=== PATIENT | female | born 1960 | race Caucasian/White ===

== ENCOUNTER → 2021-02-15 | Outpatient (CLI) | payer BC | LOC: KOH-I 13:20 | DX: Z09 Encounter for follow-up examination after completed treatment for conditions other than malignant neoplasm (principal); Z87.891 Personal history of nicotine dependence | CPT/HCPCS: 71271 ==

== ENCOUNTER → 2022-01-03 | Outpatient (CLI) | payer BC | LOC: RAD 09:23 | DX: M25.50 Pain in unspecified joint (principal); R06.02 Shortness of breath | CPT/HCPCS: 73564 ==